=== PATIENT | female | born 1970 | race Caucasian/White ===

== ENCOUNTER 2022-12-11 03:10 | Emergency (ER) | payer OTHER, SELFPAY ==
[2022-12-11 03:19] VITALS: BP 148/86; PULSE 82; RESP 16; TEMP 36.4; O2SAT 99; BMI 35.4
--- NOTE | 2022-12-11 03:40 | ED_ITS ---
HPI - Abdominal Pain General Time Seen by Provider: 03:40 Date Seen: 12/11/22 Chief Complaint: Abdominal Pain Stated Complaint: Nausea, Vomiting Time Seen by Provider: 12/11/22 03:39 Source: patient and RN notes reviewed Mode of arrival: ambulatory Limitations: no limitations History of Present Illness HPI narrative: Patient is a very pleasant 52-year-old female with history of asthma who comes to the emergency room for evaluation regarding abdominal pain. Patient notes the onset of right sided abdominal pain almost 24 hours ago. It has been associated with nausea and vomiting in the past 8 hours. There has been no fever or chills cough or congestion. Patient has also had runny stools with this discomfort. She notes that she did try to take some antacid at home but it did not help. She has not taken anything for the pain or nausea. There is really nothing that makes it worse or better. She describes it as a burning- type sensation. Patient notes no significant distension. Related Data Home Medications Medication Instructions Recorded Confirmed albuterol sulfate 90 mcg/actuation 1 - 2 puff inhalation Q4H PRN 12/11/22 12/11/22 aerosol inhaler (Ventolin HFA) wheezing Previous Rx's Medication Instructions Recorded hydrocodone 5 mg-acetaminophen 325 1 tab PO Q4H PRN pain #20 tabs 12/11/22 mg tablet ondansetron HCl 4 mg tablet 4 mg PO Q8H PRN nausea and 12/11/22 vomiting #10 tabs Allergies Allergy/AdvReac Type Severity Reaction Status Date / Time No Known Drug Allergies Allergy Verified 12/11/22 03:22 Review of Systems Status of ROS Reports: 10 or more systems reviewed and unremarkable except as noted in History and below Const Denies: fever or chills ENMT Denies: neck pain or difficulty swallowing Cardio Denies: chest pain or shortness of breath with exertion Resp Denies: shortness of breath or cough GI Reports: abdominal pain, nausea, vomiting and diarrhea; Denies: difficulty swallowing or blood in stool Denies: painful urination or urinary frequency Musculo Denies: back pain or neck pain Endo Denies: excessive urination PFSH PFSH Social History Smoking Status: Never smoker Do you use any of these nicotine containing products: None How often do you have a drink containing alcohol: never AUDIT-C Alcohol total score: 0 Non-prescribed substance use: denies use Exam Narrative: Exam Narrative: Alert and oriented. Does appear to be in some distress given the fact that she is nauseated and holding a vomit bag. Eyes are clear. Oral cavity with moist mucous membranes. Speech is normal. Heart with regular rate and rhythm and lungs are clear bilaterally. Abdomen shows bowel sounds that are present and normal. Abdomen shows pain with palpation right upper quadrant and right lateral abdomen. Lower extremities without edema. Const: Vital Signs, click to edit/add: Vital Signs - 24 hr 12/11/22 03:19 12/11/22 05:19 12/11/22 06:47 Temperature 97.6 F 98.1 F Pulse Rate [Left P ulse Oximeter] 82 64 Respiratory Rate 16 16 16 Blood Pressure [Le ft Upper Arm] 148/86 H 133/94 H Pulse Oximetry 99 98 99 Oxygen Delivery Me thod Room Air Room Air Nasal Cannula Oxygen Flow Rate 1 Documenting provider has reviewed patient's vital signs: yes Course Course Hospital Course: At this time differential diagnosis includes but is not limited to colitis, diverticulitis, gastritis, small-bowel obstruction, cholecystitis, pancreatitis, gastroenteritis. Will place IV and give patient Toradol 15 mg IV Zofran 4 mg IV and 1 L of normal saline. Will have her undergo blood draw to include CBC, comprehensive panel, urinalysis, CRP and abdominal CT. Reevaluation(s) Reevaluation #1: Patient noted to have reassuring white count as well as CRP. She had initial improvement with medications but now the burning is returning. Will use morphine [address] of the abdomen shows a possibility of colitis but I strongly suspect that there may be some biliary colic at play here. Have ordered an ultrasound of the gallbladder. Reevaluation #2: Patient notes that she is feeling better. Vital signs have continued to be reassuring. Laboratories are reassuring. Ultrasound of the right upper quadrant showed no evidence of biliary issues. Consultations Consultation #1: I had the pleasure of speaking with Dr. Penny. At this time will not treat with antibiotics but we will proceed with omeprazole, ibuprofen, hydrocodone as well as Zofran. Vital Signs Vital signs: Initial Vital Signs Temperature 97.6 F 12/11/22 03:19 Temperature Source Temporal Artery Scan 12/11/22 03:19 Pulse Rate 82 12/11/22 03:19 Respiratory Rate 16 12/11/22 03:19 Blood Pressure 148/86 H 12/11/22 03:19 Blood Pressure Mean 106 H 12/11/22 03:19 Blood Pressure Position Sitting 12/11/22 03:19 Pulse Oximetry 99 12/11/22 03:19 Oxygen Delivery Method Room Air 12/11/22 03:19 Vital Signs Temperature 97.6 F 12/11/22 03:19 Pulse Rate 82 12/11/22 03:19 Respiratory Rate 16 12/11/22 03:19 Blood Pressure 148/86 H 12/11/22 03:19 Pulse Oximetry 99 12/11/22 03:19 Oxygen Delivery Method Room Air 12/11/22 03:19 Temperature 98.1 F 12/11/22 06:47 Pulse Rate 64 12/11/22 06:47 Respiratory Rate 16 12/11/22 06:47 Blood Pressure 133/94 H 12/11/22 06:47 Pulse Oximetry 99 12/11/22 06:47 Oxygen Delivery Method Nasal Cannula 12/11/22 06:47 Oxygen Flow Rate 1 12/11/22 06:47 MDM - Abdominal Pain MDM Narrative Medical decision making narrative: 1. Colitis-patient noted to have reassuring vital signs as well as labs. Pain is consistent with colitis as she also has some vomiting and loose stools. No blood in the stools. No high risk recent activity such as antibiotic use, exposure to C diff, ingestion of uncooked foods. Patient is pain improved with Toradol and then morphine in the ED. Vomiting has resolved with the use of Zofran. Will have patient continue ibuprofen 600 mg p.o. q.8 hours p.r.n. pain. Will also give some tablets of hydrocodone/acetaminophen 3 25 1-2 tablets p.o. q.4-6 hours p.r.n. 20. With no refills. Finally Zofran 4 mg ODT q.8 hours p.r.n. nausea. So starting omeprazole 20 mg today and patient will continue this for 1 week. 2. Disposition-home at this time. Return to the emergency room for fever, worsening pain and as needed. Note no evidence of shingles/rash on back or trauma. Medical Records Attestation: I reviewed the patient's medical records. Lab Data Attestation: I reviewed the patient's lab results. Labs: Lab Results 12/11/22 12/11/22 Range/Units 03:45 04:30 WBC 6.57 (4.50-11.00) K/uL RBC 5.22 H (4.00-5.20) m/uL Hgb 15.5 (12.0-16.0) gm/dL Hct 44.4 (33.0-51.0) % MCV 85 (80-100) fL MCH 30 (26-34) pg MCHC 35 (32-36) gm/dL RDW Coeff of Valerie 11.4 L (11.5-15.5) % Plt Count 267 (140-440) K/uL Neut % (Auto) 58.7 (42.0-72.0) % Lymph % (Auto) 29.1 (20-44) % [place] % (Auto) 6.8 (0.0-11.0) % Eos % (Auto) 4.6 (0.0-7.0) % Baso % (Auto) 0.3 (0.0-3.0) % Neut # (Auto) 3.86 (1.7-7.0) K/uL Lymph # (Auto) 1.91 (0.90-2.90) K/uL [place] # (Auto) 0.40 (0.00-0.90) K/UL Eos # (Auto) 0.30 (0.00-0.50) K/uL Baso # (Auto) 0.02 (0.00-0.30) K/uL Abs Immat Gran (auto) 0.03 (0.00-0.30) K/uL Imm/Tot Granulo (auto) 0.5 % Sodium 139 (135-149) mmol/L Potassium 3.7 (3.6-5.1) mmol/L Chloride 103 (96-114) mmol/L Carbon Dioxide 25 (20-32) mmol/L BUN 12 (7-30) mg/dL Creatinine 0.8 (0.5-1.5) mg/dL Estimated Creat Clear 84.99 Estimated GFR 88 ml/min Glucose 148 H (60-115) mg/dL Calcium 10.2 (8.4-10.6) mg/dL Total Bilirubin 1.4 (0.1-1.5) mg/dL AST 35 (12-35) U/L ALT 36 H (4-35) U/L Alkaline Phosphatase 65 (40-150) U/L C-Reactive Protein < 0.5 L (0.5-1.0) mg/dL Total Protein 7.8 (6.0-8.3) g/dL Albumin 5.0 (3.3-5.0) g/dL Lipase 53 (23-300) U/L Urine Color Yellow (Yellow) Urine Appearance Clear (Clear) Urine pH 7.0 (5.0-8.5) Ur Specific [place] 1.015 (1.000-1.030) Urine Protein Negative (Negative) Urine Glucose (UA) Negative (Negative) Urine Ketones Negative (Negative) Urine Blood Negative (Negative) Urine Nitrite Negative (Negative) Urine Bilirubin Negative (Negative) Urine Urobilinogen 0.2 (0.2-1.0) Ur Leukocyte Esterase Negative (Negative) Urine RBC 0-2 (0-2) Urine WBC 0-2 (0-5) Ur Squamous Epith Cells Few (None-Few) Urine Bacteria None (None) Imaging Data CT scan - abdomen: Attestation: I have reviewed the pertinent imaging results. Radiologist's impression: Liver: Increased in size and echogenicity.. No masses. No intrahepatic biliary dilatation. Gallbladder: No stones or sludge. Normal wall thickness. No pericholecystic fluid. Common bile duct: 3 mm. Pancreas: Normal. Right kidney: Normal in size and echogenicity without evidence of hydronephrosis or shadowing calculus. Vasculature: The aorta is not aneurysmal. The IVC is patent. Impression: Hepatomegaly and hepatic steatosis. Otherwise no acute abnormality is appreciated. Discharge Plan Discharge Clinical Impression: Colitis Abdominal pain Qualifiers: Abdominal location: unspecified location Qualified Code(s): R10.9 - Unspecified abdominal pain Patient Disposition: Home, Self-Care Condition: Improved Additional Instructions: For pain: Ibuprofen 600 mg every 8 hours as needed. For pain not relieved by ibuprofen you may use Vicodin 5/325 1-2 tabs p.o. q.4-6 hours as needed for pain. For nausea: Zofran 4 mg ODT as needed. Would also suggest omeprazole 20 mg daily for 7 days. First dose given here in the emergency room. Follow-up with your primary clinic or MD next week for recheck. If you have ongoing loose stools and pain you may need stool cultures. Return to the emergency room if you have fever, blood in stool or vomit, wo rsening pain and as needed. Prescriptions: New ondansetron HCl 4 mg tablet 4 mg PO Q8H PRN (Reason: nausea and vomiting) Qty: 10 0RF hydrocodone-acetaminophen 5-325 mg tablet 1 tab PO Q4H PRN (Reason: pain) Qty: 20 0RF Rx Instructions: May use 1-2 tablets every 4-6 hours as needed for abdominal discomfort. No Action albuterol sulfate [Ventolin HFA] 90 mcg/actuation HFA aerosol inhaler 1 - 2 puff INHALATION Q4H PRN (Reason: wheezing) Stand Alone Forms: [employer] Info Instructions
--- NOTE | 2022-12-11 03:49 | CRLHL7_ITS ---
For Patients: As a result of the Century Cures Act, medical imaging exams and procedure reports are released immediately into your electronic medical record. You may view this report before your referring provider. If you have questions, please contact your health care provider. Indication: Right-sided abdominal pain with diarrhea Technique: Volumetric multidetector CT images of the abdomen and pelvis were obtained after the administration of intravenous contrast. 100 cc Isovue 370 low osmolar intravenous contrast Comparison: None available. Findings: The lung bases are clear. The liver is enlarged with moderate a paddle megaly and hepatic steatosis. The portal vein is patent. The gallbladder is unremarkable without evidence of radiopaque calculus. There is no significant common biliary ductal dilatation or abrupt cut off. The spleen is normal in enhancement and size. The stomach and duodenum are grossly unremarkable. The pancreas is normal in enhancement without significant atrophy. The adrenal glands are unremarkable. The kidneys demonstrate preserved corticomedullary differentiation without evidence of obstructive uropathy. There is moderate stool seen throughout the colon with distal colonic diverticulosis without evidence of diverticulitis. The appendix is unremarkable. There is no significant mesenteric, retroperitoneal, or pelvic sidewall lymph nodes. The aorta is nonaneurysmal. There is no significant atherosclerotic disease appreciated. The solid pelvic viscera are grossly unremarkable. There is no free fluid or free air. There is a small fat containing umbilical hernia. The lumbar vertebral body heights are grossly maintained with mild straightening of the normal lumbar lordosis. There is trace retrolisthesis of L2 on L3. Impression: Moderate of hepatomegaly and hepatic steatosis. Decompressed appearance of the colon with minimal colonic diverticulosis. No overt pericolonic inflammatory change is appreciated; however, a low-grade colitis may not be excluded. Normal appendix. Please note that all CT scans at this facility use dose modulation, iterative reconstruction, and/or weight-based dosing when appropriate to reduce radiation dose to as low as reasonably achievable. Dictated by Jesus Dozier MD @ 12/11/2022 4:37:10 AM (Electronically Signed)
[2022-12-11] MEDS: 0.9 % SODIUM CHLORIDE 1000 ml 1,000 ML IV (03:54)
[2022-12-11 03:57] LABS: Basophils Absolute Auto 0.02 K/uL (0.00-0.30); Basophils Percent Auto 0.3 % (0.0-3.0); Eosinophils Percent Auto 4.6 % (0.0-7.0); Hematocrit 44.4 % (33.0-51.0); Hemoglobin* 15.5 gm/dL (12.0-16.0); Immature Granulocytes Abs Auto 0.03 K/uL (0.00-0.30); Immature Granulocytes Pct Auto 0.5 %; Lymphocytes Absolute Auto 1.91 K/uL (0.90-2.90); Lymphocytes Percent Auto 29.1 % (20-44); Mean Corpuscular HGB Conc 35 gm/dL (32-36); Mean Corpuscular Hemoglobin 30 pg (26-34); Mean Corpuscular Volume 85 fL (80-100); Monocytes Percent Auto 6.8 % (0.0-11.0); Neutrophils Absolute Auto 3.86 K/uL (1.7-7.0); Neutrophils Percent Auto 58.7 % (42.0-72.0); Platelet Count* 267 K/uL (140-440); RDW Coefficient of Variation % 11.4 % (11.5-15.5); Red Blood Count 5.22 m/uL (4.00-5.20); White Blood Count* 6.57 K/uL (4.50-11.00)
[2022-12-11 03:59] LABS: Chloride* 103 mmol/L (96-114); Slide Review Reflex No; Sodium* 139 mmol/L (135-149)
[2022-12-11 04:00] LABS: Potassium* 3.7 mmol/L (3.6-5.1)
[2022-12-11 04:02] LABS: Bilirubin Total* 1.4 mg/dL (0.1-1.5); Creatinine* 0.8 mg/dL (0.5-1.5); Est. Creatinine Clearance* 84.99; Estimated Glomerular Filt Rate 88 ml/min; Lipase* 53 U/L (23-300)
[2022-12-11 04:03] LABS: Alanine Aminotransferase* 36 U/L (4-35); Alkaline Phosphatase* 65 U/L (40-150); Aspartate Amino Transferase* 35 U/L (12-35); Blood Urea Nitrogen* 12 mg/dL (7-30); Calcium* 10.2 mg/dL (8.4-10.6); Carbon Dioxide* 25 mmol/L (20-32); Glucose* 148 mg/dL (60-115); Total Protein* 7.8 g/dL (6.0-8.3)
[2022-12-11] MEDS: ONDANSETRON 2 MG/ML inj 4 MG IVP (04:03)
[2022-12-11] MEDS: KETOROLAC 15 MG/ML inj IVP (04:03)
[2022-12-11 04:06] LABS: C Reactive Protein* < 0.5 mg/dL (0.5-1.0)
[2022-12-11 04:36] LABS: Appearance Urine Clear (Clear); Bilirubin Urine Negative (Negative); Blood Urine Negative (Negative); Color Urine Yellow (Yellow); Glucose Urine Negative (Negative); Ketones Urine Negative (Negative); Leukocyte Esterase Urine Negative (Negative); Nitrite Urine Negative (Negative); Protein Urine Negative (Negative); Specific Gravity Urine 1.015 (1.000-1.030); Urobilinogen Urine 0.2 (0.2-1.0)
[2022-12-11 04:42] LABS: RBC Urine 0-2 (0-2); Squamous Epithelial Cell Urine Few (None-Few); WBC Urine 0-2 (0-5)
--- NOTE | 2022-12-11 04:53 | CRLHL7_ITS ---
For Patients: As a result of the Century Cures Act, medical imaging exams and procedure reports are released immediately into your electronic medical record. You may view this report before your referring provider. If you have questions, please contact your health care provider. Indication: Right upper quadrant abdomen pain TECHNIQUE: Ultrasound abdomen limited. Sonographic images of the right upper quadrant were obtained using talavera-scale and color Doppler images. Comparison: None FINDINGS: Liver: Increased in size and echogenicity.. No masses. No intrahepatic biliary dilatation. Gallbladder: No stones or sludge. Normal wall thickness. No pericholecystic fluid. Common bile duct: 3 mm. Pancreas: Normal. Right kidney: Normal in size and echogenicity without evidence of hydronephrosis or shadowing calculus. Vasculature: The aorta is not aneurysmal. The IVC is patent. Impression: Hepatomegaly and hepatic steatosis. Otherwise no acute abnormality is appreciated. Dictated by Jesus Dozier MD @ 12/11/2022 7:36:34 AM (Electronically Signed)
[2022-12-11] MEDS: MORPHINE 4 MG/ML INJ IVP (05:15)
[2022-12-11 05:19] VITALS: RESP 16; O2SAT 98
[2022-12-11 06:47] VITALS: BP 133/94; PULSE 64; RESP 16; TEMP 36.7; O2SAT 99
[2022-12-11] MEDS: OMEPRAZOLE 20 MG CAPSULE DR PO (08:13)
--- NOTE | 2022-12-11 10:01 | ED.NURSE ---
chart accessed for clarification of Vicodin order. [facility] pharmacy called and clarified order.
== END 2022-12-11 08:22 | disposition home or self-care (01) ==
PROVIDERS: Emergency Provider Family Medicine; PCP Family Medicine
DX: K52.9 Noninfective gastroenteritis and colitis, unspecified (principal)
CPT/HCPCS: 36415; 74177; 76705; 80053; 81001; 83690; 85025; 86140; 96361; 96374; 96375; 99284; 99285; A9270; J1885; J2270; J2405; J7030; Q9967